=== PATIENT | female | born 2000 | race Caucasian/White ===

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

== ENCOUNTER 2018-05-19 08:43 | Emergency (ER) | payer BC ==
[2018-05-19 09:17] LABS: #Basophils 0.1 thou/uL (0.0-0.2); #Eosinphils 0.1 thou/uL (0.0-0.7); #Lymphocytes 3.6 thou/uL (1.20-3.40); #Monocytes 0.7 thou/uL (0.11-0.59); #Neutrophils 7.6 thou/uL (1.40-6.50); %Basophils 0.7 % (0.0-1.0); %Eosinophils 1.2 % (0.0-10.0); %Lymphocytes 29.6 % (28.0-48.0); %Monocytes 5.8 % (0.0-4.0); %Neutrophils 62.7 % (31.0-61.0); Hemoglobin 15.9 g/dL (12.0-16.0); Mean Corpuscular HGB CONC 34.3 g/dL (32.0-36.0); Mean Corpuscular Hemoglobin 30.1 pg (25.0-35.0); Mean Corpuscular Volume 87.8 fL (78.0-98.0); Mean Platelet Volume 7.4 fL (7.4-10.4); Platelet Count 317 thou/uL (130-400); RBC Distribution Width 11.3 % (11.5-14.5); Red Blood Cell (RBC) Count 5.28 mill/uL (4.00-5.20); White Blood Cell (WBC) Count 12.1 thou/uL (4.8-10.8)
[2018-05-19 09:21] LABS: Bilirubin Negative (Negative); Blood, Urine Moderate (Negative); Clarity CLEAR (Clear); Glucose, Urine (Dipstick) Negative (Negative); Leukocyte Small (Negative); Nitrite Negative (Negative); Protein, Urine (Dipstick) Negative (Neg-Trace); Specific Gravity, Urine 1.013 (1.002-1.036); Urobilinogen 0.2 mg/dL (0.2-1.0); pH, Urine 5.5 (5.0-9.0)
[2018-05-19 09:23] LABS: Pregnancy Test - Urine (BHCG) Negative (Negative); Pregu Control Background? CLEAR/WHITE (CLR/WHITE); Pregu Control Bar Appear? YES (CONTROL BAR); Specific Gravity 1.013 (1.002-1.036)
[2018-05-19 09:24] LABS: Bacteria/HPF None Seen HPF (None Seen); Hyaline Casts/LPF 4-6 HYALINE CAST LPF (0-3 Hyaline); Pathc Cast-AUWi Flag 0.95 (0-2.49); Squamous Epithelial 0-3 HPF (0-3)
[2018-05-19] MEDS ORDERED: Ketorolac Tromethamine 30 MG/ML VIAL ONE (09:33)
[2018-05-19 09:40] LABS: ALT (SGPT) 17 U/L (8-55); AST (SGOT) 18 U/L (5-30); Albumin 4.8 g/dL (3.5-5.0); Alkaline Phosphatase 60 U/L (40-150); Anion Gap 15 mmol/L (10-20); BUN (Urea Nitrogen) 8 mg/dL (8.4-21.0); Bilirubin, Total 0.7 mg/dL (0.2-1.2); Calc. Creatinine Clearance 0 mL/min (70-130); Calcium 10.3 mg/dL (7.8-10.44); Carbon Dioxide 23 mmol/L (22-29); Chloride 104 mmol/L (98-107); Estimated GFR-MDRD Greater than 90; Globulin 3.7 g/dL (2.4-3.5); Glucose 85 mg/dL (70-105); Lipase 8 U/L (8-78); Protein, Total 8.5 g/dL (6.0-8.3); Sodium 138 mmol/L (136-145)
--- NOTE | 2018-05-19 10:20 | CT ---
EXAM: ABDOMEN AND PELVIC CT SCAN WITH IV CONTRAST: History: Abdominal pain. FINDINGS: Lung bases are clear. The visualized liver, gallbladder, pancreas, spleen and adrenal glands are unre markable. No renal calculus or acute obstruction. Normal appearing appendix. Unremarkable uterus a nd adnexa. No abscess, adenopathy, or abnormal fluid collection. Evidence for some disc bulging and p ossible mild canal stenosis at L4-5. IMPRESSION: No significant acute process in the abdomen or pelvis. No renal or calculus. Normal appearing appe ndix. POS: [facility]
[2018-05-19] MEDS ORDERED: Ondansetron PF 4 MG/2 ML Vial ONE (10:29)
[2018-05-19] MEDS ORDERED: cefTRIAXone\\ROCEPHIN 1 GM VIAL ONE (10:29)
[2018-05-19] MEDS ORDERED: Sodium Chloride 0.9% 100 ML ONE (10:29)
[2018-05-19] MEDS ORDERED: ISOVUE-370 76%-LOCM 1 ML ONE (12:53)
== END 2018-05-19 11:29 | disposition home or self-care (01) ==
LOC: ERS 08:43
DX: N10 Acute pyelonephritis (principal); N30.00 Acute cystitis without hematuria
CPT/HCPCS: 36415; 74177; 80053; 81003; 81015; 81025; 83690; 85025; 96365; 96375; J0696; J1885; J2405; J7050; Q9966

== ENCOUNTER 2018-10-07 15:19 | Emergency (ER) | payer BC ==
[2018-10-07] MEDS ORDERED: Dexamethasone 4 mg/ml Vial ONE (16:18)
[2018-10-07] MEDS ORDERED: diphenhydrAMINE 25 MG CAP ONE (16:18)
== END 2018-10-07 16:35 | disposition home or self-care (01) ==
LOC: ERS 15:19
DX: T78.40XA Allergy, unspecified, initial encounter (principal); G43.909 Migraine, unspecified, not intractable, without status migrainosus
CPT/HCPCS: 99282; J1100; Q0163

== ENCOUNTER 2019-12-10 14:44 | Emergency (ER) | payer BC, OTHER ==
--- NOTE | 2019-12-10 15:45 | ULT ---
Exam: Pelvic ultrasound HISTORY: 12 week with vaginal bleeding and left lower quadrant abdominal pain. COMPARISON: None TECHNIQUE: Multiple grayscale and color Doppler images were obtained in a transabdominal pelvic ultra sound. FINDINGS: CERVIX: Unremarkable UTERUS: There is a fluid collection seen in the endometrial canal which does a single intrauterine ge station. Cardiac Doppler does demonstrates heart tones with a heart rate of 157 bpm. The crown-rump length measures 5.7 cm corresponding to gestational age by ultrasound of 12 weeks and 2 days with LESLI on 06/21/2020. This does correlate with gestational age by the last menstrual period. There is no evidence of a subchorionic hemorrhage. No free fluid is present. RIGHT OVARY: Not visualized due to shadowing from bowel gas. LEFT OVARY:Normal sonographic appearance with arterial and venous flow seen on Doppler evaluation wit h spectral analysis and color flow. IMPRESSION: 1. Evidence of a single intrauterine gestation with heart tones documented. Gestational age by measurement of the crown-rump length is 12 weeks and 2 days. 2. Normal-appearing left ovary with flow demonstrated. Right ovary is obscured due to shadowing from bowel gas.
== END 2019-12-10 17:12 | disposition home or self-care (01) ==
LOC: ERS 14:44
DX: O23.41 Unspecified infection of urinary tract in pregnancy, first trimester (principal); Z3A.12 12 weeks gestation of pregnancy
CPT/HCPCS: 36415; 76856; 86900; 86901; 93976